=== PATIENT | male | born 1950 | race Caucasian/White ===

== ENCOUNTER 2019-02-19 05:54 | Day surgery (SDC) | payer MEDICARE, BC ==
[2019-02-19] MEDS ORDERED: DIPRIVAN 200 MG/20 ML IV ONE (05:55)
[2019-02-19] MEDS ORDERED: Lactated Ringers 1,000 ML IV SCH (06:00)
--- NOTE | 2019-02-19 09:03 | OP ---
SURGERY DATE/TIME: 02/19/2019 0800 PREOPERATIVE DIAGNOSIS: Screening colonoscopy. POSTOPERATIVE DIAGNOSES: 1) Sigmoid colon polyp x2. 2) Sigmoid diverticulosis. PROCEDURE: Colonoscopy. SURGEON: Cesar Martino M.D. ANESTHESIA: MAC by [place] CRNA. ESTIMATED BLOOD LOSS: Minimal. SPECIMENS: Two hot forceps polypectomies in the sigmoid colon. DESCRIPTION OF PROCEDURE: After informed written consent was obtained, the patient was taken to the endoscopy suite. He underwent monitored anesthesia and digital rectal exam showed normal sphincter tone and no internal lesions. The scope was inserted into the rectum and sequentially the entire colonic mucosa was traversed. The level of cecum was reached and verified with direct visualization of ileocecal valve. Upon withdrawal careful mucosal inspection revealed no gross abnormalities other than diffuse diverticulosis mostly in the sigmoid colon. There was a small sessile polyp in the proximal sigmoid colon which was removed in its entirety with hot forceps and sent for pathology. The same procedure was repeated on distal sigmoid colon polyp as well. No other abnormalities were encountered. Retroflexion was performed prior to withdrawal and showed no internal lesions. The scope was removed and the patient was transferred to the recovery room in good condition.
[2019-02-19 09:23] VITALS: O2SAT 99
[2019-02-19 09:24] VITALS: BP 139/77; PULSE 62
== END 2019-02-19 09:34 | disposition home or self-care (01) ==
LOC: SDC 05:54
PROVIDERS: ATTEND Family Medicine
DX: Z12.11 Encounter for screening for malignant neoplasm of colon (principal); K57.30 Diverticulosis of large intestine without perforation or abscess without bleeding; K63.5 Polyp of colon
CPT/HCPCS: 88305; 99100; J2704